=== PATIENT | female | born 1995 | race Caucasian/White ===

== ENCOUNTER 2019-01-06 17:14 | Emergency (ER) | payer SELFPAY ==
[2019-01-06] MEDS ORDERED: AZITHROMYCIN 250 MG TABLET PO ONE (17:48)
[2019-01-06] MEDS ORDERED: ONDANSETRON ODT 4 MG TAB ONE (17:48)
[2019-01-06] MEDS ORDERED: LIDOCAINE HCL-MPF 1% 2ML VIAL ONE (17:48)
[2019-01-06] MEDS ORDERED: CEFTRIAXONE SODIUM 500 MG VIAL ONE (17:48)
== END 2019-01-06 18:07 | disposition home or self-care (01) ==
LOC: EDH 17:14
DX: A56.8 Sexually transmitted chlamydial infection of other sites (principal); Z79.899 Other long term (current) drug therapy
CPT/HCPCS: 96372; 99283; J0696; J3490